=== PATIENT | female | born 1970 | race Two or more races ===

== ENCOUNTER 2022-03-05 09:09 | Emergency (ER) | payer SELFPAY ==
[~2022-03-05] VITALS: Ht 180.3 cm; Wt 85.3 kg
--- NOTE | 2022-03-05 09:31 | NUR ---
SEEN AND EXAMINED BY DR CONNELLY
[2022-03-05] MEDS ORDERED: TDAP [DIPH/PERTUSSIS/TET] 0.5 ML VIAL IM ONE ×2 (09:37→10:00)
[2022-03-05] MEDS ORDERED: ACETAMINOPHEN 325 MG TABLET ONE (09:37)
--- NOTE | 2022-03-05 09:38 | NUR ---
TAKEN TO CT VIA [facility]
[2022-03-05] MEDS ORDERED: ACETAMINOPHEN 325 MG TABLET PO ONE (10:00)
--- NOTE | 2022-03-05 10:10 | NUR ---
TONNY [phone] CALLED, PT WILL BE PICKED UP BY NEIGHBOR PER PT
--- NOTE | 2022-03-05 10:35 | NUR ---
Patient discharged to home in stable condition. Written and verbal after care instructions given. Patient verbalizes understanding of instruction.
[2022-03-05 10:54] VITALS: BP 130/82
== END 2022-03-05 10:55 | disposition home or self-care (01) ==
LOC: ER 09:11
DX: S09.90XA Unspecified injury of head, initial encounter (principal); S50.312A Abrasion of left elbow, initial encounter; V87.8XXA Person injured in other specified noncollision transport accidents involving motor vehicle (traffic), initial encounter; Y93.89 Activity, other specified; Y92.89 Other specified places as the place of occurrence of the external cause; Y99.8 Other external cause status
CPT/HCPCS: 99284; 70450; 90471; 90715; A6403